=== PATIENT | male | born 1935 | race Caucasian/White ===

== ENCOUNTER 2017-07-09 19:18 | Inpatient (IN) ==
[2017-07-09] MEDS ORDERED: ASPIRIN 325 MG TABLET PO STA (19:42)
[2017-07-09] MEDS ORDERED: FUROSEMIDE 40 MG/4 ML VIAL IV STA (19:42)
[2017-07-09 20:40] LABS: Basophils # 0.1 10*3/uL (0.0-0.2); Basophils % 1.2 % (0.0-0.8); Eosinophils # 0.6 10*3/uL (0.0-0.87); Eosinophils % 8.7 % (0.00-10.9); Hematocrit 30.1 VOL% (42.0-52.0); Hemoglobin 9.5 GM/DL (14.0-18.0); Immature Granulocytes % 0.7 %; Immature Granulocytes Absolute 0.05 #; Lymphocytes # 0.7 10*3/uL (1.4-4.0); Lymphocytes % 10.2 % (21.2-54.2); Mean Corpuscular HGB Conc 31.6 GM/DL (32-36); Mean Corpuscular Hemoglobin 24 PG (27-34); Mean Corpuscular Volume 74.7 FL (87-102); Monocytes # 0.8 10*3/uL (0.11-0.8); Monocytes % 10.6 % (1.7-12.7); NRBC # 0.03 10*3/uL; Neutrophils % 68.6 % (38.7-73.9); Platelet Count 155 T/CUMM (130-400); Red Blood Count 4.03 MC/CUMM (3.8-5.5); Red Cell Distribution Width 19.3 % (9.3-17.3); White Blood Count 7.3 T/CUMM (4-12)
[2017-07-09 20:48] LABS: INR 1.9; PT Patient Result 19.8 SECS
[2017-07-09 21:07] LABS: Albumin 2.8 G/DL (3.4-5.0); Bilirubin,Total 2.1 MG/DL (0.2-1.0); Calcium 8.3 MG/DL (8.5-10.1); Osmolality,Calculated 287.8 MOS/KG (273-304); Potassium 3.6 MMOL/L (3.5-5.1); Total Protein 5.3 G/DL (6.4-8.3)
[2017-07-09] MEDS ORDERED: MAGNESIUM SULF RIDER 4 GM in PREMIX 1 EACH IV PRN (21:43)
[2017-07-09] MEDS ORDERED: ONDANSETRON 4 MG/2 ML VIAL IV PRN (21:43)
[2017-07-09] MEDS ORDERED: MAGNESIUM SULF RIDER 2 GM in PREMIX 1 EACH IV PRN (21:43)
[2017-07-09] MEDS ORDERED: PSYLLIUM POWDER 3.7 GM/PACK PO PRN (23:16)
[2017-07-09] MEDS ORDERED: BENZONATATE 100 MG CAPSULE PO PRN (23:16)
[2017-07-09] MEDS: ATORVASTATIN 10 MG TABLET PO SCH (23:41)
[2017-07-09] MEDS: TAMSULOSIN 0.4 MG CAPSULE PO SCH (23:41)
[2017-07-09] MEDS: APIXABAN 2.5 MG TABLET PO SCH (23:54)
[2017-07-09] MEDS: CARVEDILOL 12.5 MG TABLET PO SCH (23:54)
[2017-07-10 04:40] LABS: Basophils # 0.1 10*3/uL (0.0-0.2); Basophils % 1.1 % (0.0-0.8); Eosinophils # 0.7 10*3/uL (0.0-0.87); Hematocrit 28.3 VOL% (42.0-52.0); Hemoglobin 9.2 GM/DL (14.0-18.0); Immature Granulocytes % 0.9 %; Immature Granulocytes Absolute 0.06 #; Lymphocytes # 0.8 10*3/uL (1.4-4.0); Lymphocytes % 11.6 % (21.2-54.2); Mean Corpuscular HGB Conc 32.5 GM/DL (32-36); Mean Corpuscular Hemoglobin 24 PG (27-34); Mean Corpuscular Volume 72.6 FL (87-102); Monocytes # 0.8 10*3/uL (0.11-0.8); Monocytes % 12.5 % (1.7-12.7); NRBC # 0.03 10*3/uL; Neutrophils # 4.2 10*3/uL (1.4-7.4); Neutrophils % 62.9 % (38.7-73.9); Platelet Count 141 T/CUMM (130-400); Red Cell Distribution Width 19.4 % (9.3-17.3); White Blood Count 6.6 T/CUMM (4-12)
[2017-07-10 05:18] LABS: Albumin 2.4 G/DL (3.4-5.0); Bilirubin,Total 2.4 MG/DL (0.2-1.0); Calcium 8.3 MG/DL (8.5-10.1); Osmolality,Calculated 286.7 MOS/KG (273-304); Potassium 3.1 MMOL/L (3.5-5.1)
[2017-07-10 05:24] LABS: Eosinophils 15 % (0-10); Lymphocytes 7 % (20-55); Segmented Neutrophils 72 % (50-85); Total Cells Counted 100
[2017-07-10 05:25] LABS: Acanthocytes Few; Hypochromasia 1+
[2017-07-10 05:26] LABS: Microcytosis 1+; Poikilocytosis 1+
[2017-07-10 05:27] LABS: Platelet Estimate Adequate
[2017-07-10] MEDS ORDERED: FUROSEMIDE 20 MG/2 ML VIAL IV SCH (08:00)
[2017-07-10] MEDS ORDERED: ENOXAPARIN 40 MG/0.4 ML SYRINGE SUBCUT SCH (09:00)
[2017-07-10] MEDS ORDERED: PANTOPRAZOLE 40 MG TABLET PO SCH (09:00)
[2017-07-10] MEDS ORDERED: POTASSIUM CHLORIDE 20 MEQ TABLET PO PRN (09:12)
[2017-07-10] MEDS: ALLOPURINOL 300 MG TABLET PO SCH (09:49)
[2017-07-10] MEDS: ISOSORBIDE MONONITRATE 60 MG TABLET PO SCH (09:49)
[2017-07-10] MEDS: ASPIRIN CHEW 81 MG TABLET PO SCH (09:50)
[2017-07-10] MEDS: PANTOPRAZOLE 40 MG TABLET PO SCH ×2 (09:50→20:35)
[2017-07-10] MEDS: APIXABAN 2.5 MG TABLET PO SCH ×2 (09:50→20:35)
[2017-07-10] MEDS: CARVEDILOL 12.5 MG TABLET PO SCH ×2 (09:50→20:36)
[2017-07-10] MEDS: TAMSULOSIN 0.4 MG CAPSULE PO SCH (17:18)
[2017-07-10] MEDS: FUROSEMIDE 40 MG/4 ML VIAL IV SCH (17:21)
[2017-07-10] MEDS: FENOFIBRATE 145 MG TABLET PO SCH (20:35)
[2017-07-10] MEDS: ATORVASTATIN 10 MG TABLET PO SCH (20:37)
[2017-07-10] MEDS: TEMAZEPAM 15 MG CAPSULE PO PRN (22:05)
[2017-07-11 05:16] LABS: Basophils # 0.1 10*3/uL (0.0-0.2); Basophils % 0.7 % (0.0-0.8); Eosinophils % 14.2 % (0.00-10.9); Immature Granulocytes % 0.7 %; Immature Granulocytes Absolute 0.05 #; Lymphocytes # 0.8 10*3/uL (1.4-4.0); Lymphocytes % 10.4 % (21.2-54.2); Mean Corpuscular HGB Conc 32.1 GM/DL (32-36); Mean Corpuscular Hemoglobin 23 PG (27-34); Mean Corpuscular Volume 72.5 FL (87-102); Monocytes # 0.7 10*3/uL (0.11-0.8); Monocytes % 10.1 % (1.7-12.7); NRBC # 0.02 10*3/uL; Neutrophils # 4.7 10*3/uL (1.4-7.4); Neutrophils % 63.9 % (38.7-73.9); Platelet Count 141 T/CUMM (130-400); Red Blood Count 3.86 MC/CUMM (3.8-5.5); Red Cell Distribution Width 19.5 % (9.3-17.3); White Blood Count 7.3 T/CUMM (4-12)
[2017-07-11 05:41] LABS: Calcium 8.2 MG/DL (8.5-10.1); Osmolality,Calculated 291.4 MOS/KG (273-304)
[2017-07-11 06:26] LABS: Eosinophils 15 % (0-10); Hypochromasia 1+; Lymphocytes 11 % (20-55); Segmented Neutrophils 69 % (50-85); Total Cells Counted 100
[2017-07-11 06:27] LABS: Acanthocytes Few; Burr Cells Slight; Microcytosis 1+; Ovalocytes Slight
[2017-07-11 06:28] LABS: Platelet Estimate Adequate
[2017-07-11] MEDS: ISOSORBIDE MONONITRATE 60 MG TABLET PO SCH (08:15)
[2017-07-11] MEDS: CARVEDILOL 12.5 MG TABLET PO SCH ×2 (08:15→21:39)
[2017-07-11] MEDS: ALLOPURINOL 300 MG TABLET PO SCH (08:16)
[2017-07-11] MEDS: APIXABAN 2.5 MG TABLET PO SCH ×2 (08:16→21:39)
[2017-07-11] MEDS: PANTOPRAZOLE 40 MG TABLET PO SCH ×2 (08:16→16:08)
[2017-07-11] MEDS: ASPIRIN CHEW 81 MG TABLET PO SCH (08:16)
[2017-07-11] MEDS: FUROSEMIDE 40 MG/4 ML VIAL IV SCH ×2 (08:17→16:07)
[2017-07-11] MEDS: POTASSIUM CHLORIDE 20 MEQ TABLET PO SCH ×2 (10:21→21:39)
[2017-07-11] MEDS: LISINOPRIL 5 MG TABLET PO SCH (10:23)
[2017-07-11] MEDS: TAMSULOSIN 0.4 MG CAPSULE PO SCH (17:13)
[2017-07-11] MEDS: TEMAZEPAM 15 MG CAPSULE PO PRN (21:38)
[2017-07-11] MEDS: ATORVASTATIN 10 MG TABLET PO SCH (21:39)
[2017-07-11] MEDS: FENOFIBRATE 145 MG TABLET PO SCH (21:39)
[2017-07-12 04:54] LABS: Basophils # 0.1 10*3/uL (0.0-0.2); Eosinophils # 0.8 10*3/uL (0.0-0.87); Eosinophils % 9.6 % (0.00-10.9); Hematocrit 27.7 VOL% (42.0-52.0); Hemoglobin 8.9 GM/DL (14.0-18.0); Immature Granulocytes Absolute 0.08 #; Lymphocytes # 0.8 10*3/uL (1.4-4.0); Lymphocytes % 10.2 % (21.2-54.2); Mean Corpuscular HGB Conc 32.1 GM/DL (32-36); Mean Corpuscular Hemoglobin 23 PG (27-34); Mean Corpuscular Volume 72.9 FL (87-102); Monocytes # 0.8 10*3/uL (0.11-0.8); Monocytes % 9.6 % (1.7-12.7); NRBC # 0.02 10*3/uL; Neutrophils # 5.4 10*3/uL (1.4-7.4); Neutrophils % 68.6 % (38.7-73.9); Platelet Count 157 T/CUMM (130-400); Red Cell Distribution Width 19.6 % (9.3-17.3); White Blood Count 7.9 T/CUMM (4-12)
[2017-07-12 05:28] LABS: Acanthocytes Few; Hypochromasia 2+; Microcytosis 1+; Polychromasia Slight; Target Cells Slight
[2017-07-12 05:29] LABS: Anisocytosis 1+; Ovalocytes Slight; Platelet Estimate Adequate; Poikilocytosis 1+
[2017-07-12 05:37] LABS: Calcium 8.6 MG/DL (8.5-10.1); Potassium 3.7 MMOL/L (3.5-5.1)
[2017-07-12] MEDS: POTASSIUM CHLORIDE 20 MEQ TABLET PO SCH ×2 (09:04→21:36)
[2017-07-12] MEDS: FUROSEMIDE 40 MG/4 ML VIAL IV SCH ×2 (09:04→16:25)
[2017-07-12] MEDS: ISOSORBIDE MONONITRATE 60 MG TABLET PO SCH (09:04)
[2017-07-12] MEDS: PANTOPRAZOLE 40 MG TABLET PO SCH ×2 (09:04→16:25)
[2017-07-12] MEDS: ALLOPURINOL 300 MG TABLET PO SCH (09:05)
[2017-07-12] MEDS: APIXABAN 2.5 MG TABLET PO SCH ×2 (09:05→21:37)
[2017-07-12] MEDS: LISINOPRIL 5 MG TABLET PO SCH (09:05)
[2017-07-12] MEDS: CARVEDILOL 12.5 MG TABLET PO SCH ×2 (09:05→21:37)
[2017-07-12] MEDS: ASPIRIN CHEW 81 MG TABLET PO SCH (09:05)
[2017-07-12] MEDS ORDERED: IRON SUCROSE 200 MG in SODIUM CHLORIDE 0.9% 100 ML IV ONE (16:00)
[2017-07-12] MEDS: TAMSULOSIN 0.4 MG CAPSULE PO SCH ×2 (16:25→17:03)
[2017-07-12] MEDS: FENOFIBRATE 145 MG TABLET PO SCH (21:36)
[2017-07-12] MEDS: ATORVASTATIN 10 MG TABLET PO SCH ×2 (21:37→21:38)
[2017-07-12] MEDS: TEMAZEPAM 15 MG CAPSULE PO PRN (21:41)
[2017-07-13 05:46] LABS: Basophils # 0.1 10*3/uL (0.0-0.2); Eosinophils # 0.8 10*3/uL (0.0-0.87); Eosinophils % 8.4 % (0.00-10.9); Hematocrit 28.8 VOL% (42.0-52.0); Hemoglobin 8.8 GM/DL (14.0-18.0); Immature Granulocytes Absolute 0.09 #; Lymphocytes # 0.8 10*3/uL (1.4-4.0); Lymphocytes % 8.9 % (21.2-54.2); Mean Corpuscular HGB Conc 30.6 GM/DL (32-36); Mean Corpuscular Hemoglobin 23 PG (27-34); Monocytes # 0.8 10*3/uL (0.11-0.8); Monocytes % 8.9 % (1.7-12.7); NRBC # 0.02 10*3/uL; Neutrophils # 6.5 10*3/uL (1.4-7.4); Neutrophils % 71.8 % (38.7-73.9); Platelet Count 142 T/CUMM (130-400); Red Blood Count 3.84 MC/CUMM (3.8-5.5); Red Cell Distribution Width 19.6 % (9.3-17.3)
[2017-07-13 06:15] LABS: Calcium 8.6 MG/DL (8.5-10.1); Osmolality,Calculated 295.1 MOS/KG (273-304); Potassium 3.8 MMOL/L (3.5-5.1)
[2017-07-13 06:35] LABS: Hypochromasia 2+
[2017-07-13 06:36] LABS: Acanthocytes Few; Microcytosis 1+; Ovalocytes Slight; Platelet Estimate Adequate; Poikilocytosis 1+; Target Cells Slight
[2017-07-13] MEDS: FUROSEMIDE 40 MG/4 ML VIAL IV SCH ×2 (09:45→16:08)
[2017-07-13] MEDS: CARVEDILOL 12.5 MG TABLET PO SCH ×2 (09:46→21:51)
[2017-07-13] MEDS: APIXABAN 2.5 MG TABLET PO SCH ×2 (09:46→21:51)
[2017-07-13] MEDS: PANTOPRAZOLE 40 MG TABLET PO SCH ×2 (09:46→16:07)
[2017-07-13] MEDS: ISOSORBIDE MONONITRATE 60 MG TABLET PO SCH (09:46)
[2017-07-13] MEDS: POTASSIUM CHLORIDE 20 MEQ TABLET PO SCH ×2 (09:46→21:51)
[2017-07-13] MEDS: ASPIRIN CHEW 81 MG TABLET PO SCH (09:46)
[2017-07-13] MEDS: ALLOPURINOL 300 MG TABLET PO SCH (09:47)
[2017-07-13] MEDS: LISINOPRIL 5 MG TABLET PO SCH (09:47)
[2017-07-13] MEDS: TAMSULOSIN 0.4 MG CAPSULE PO SCH ×2 (16:09→17:12)
[2017-07-13] MEDS: FENOFIBRATE 145 MG TABLET PO SCH (21:51)
[2017-07-13] MEDS: TEMAZEPAM 15 MG CAPSULE PO PRN (21:51)
[2017-07-13] MEDS: ATORVASTATIN 10 MG TABLET PO SCH (21:52)
[2017-07-14 05:45] LABS: Basophils # 0.1 10*3/uL (0.0-0.2); Basophils % 0.9 % (0.0-0.8); Eosinophils # 0.7 10*3/uL (0.0-0.87); Eosinophils % 9.6 % (0.00-10.9); Hematocrit 27.4 VOL% (42.0-52.0); Hemoglobin 8.8 GM/DL (14.0-18.0); Immature Granulocytes % 1.6 %; Immature Granulocytes Absolute 0.12 #; Lymphocytes # 0.8 10*3/uL (1.4-4.0); Lymphocytes % 11.3 % (21.2-54.2); Mean Corpuscular HGB Conc 32.1 GM/DL (32-36); Mean Corpuscular Hemoglobin 24 PG (27-34); Mean Corpuscular Volume 73.3 FL (87-102); Monocytes # 0.7 10*3/uL (0.11-0.8); NRBC # 0.02 10*3/uL; Neutrophils % 67.6 % (38.7-73.9); Platelet Count 141 T/CUMM (130-400); Red Blood Count 3.74 MC/CUMM (3.8-5.5); White Blood Count 7.4 T/CUMM (4-12)
[2017-07-14 06:19] LABS: Osmolality,Calculated 294.1 MOS/KG (273-304)
[2017-07-14 06:20] LABS: Calcium 9.1 MG/DL (8.5-10.1); Potassium 3.9 MMOL/L (3.5-5.1)
[2017-07-14 07:32] LABS: Burr Cells 1+; Elliptocytes 1+; Macrocytosis 1+; Target Cells Slight
[2017-07-14 07:33] LABS: Acanthocytes 1+
[2017-07-14] MEDS: ISOSORBIDE MONONITRATE 60 MG TABLET PO SCH (08:19)
[2017-07-14] MEDS: ASPIRIN CHEW 81 MG TABLET PO SCH (08:19)
[2017-07-14] MEDS: ALLOPURINOL 300 MG TABLET PO SCH (08:19)
[2017-07-14] MEDS: APIXABAN 2.5 MG TABLET PO SCH ×2 (08:19→20:52)
[2017-07-14] MEDS: POTASSIUM CHLORIDE 20 MEQ TABLET PO SCH ×2 (08:19→20:51)
[2017-07-14] MEDS: PANTOPRAZOLE 40 MG TABLET PO SCH ×2 (08:19→17:10)
[2017-07-14] MEDS: FUROSEMIDE 40 MG/4 ML VIAL IV SCH ×2 (08:19→15:13)
[2017-07-14] MEDS: CARVEDILOL 12.5 MG TABLET PO SCH ×2 (08:19→20:51)
[2017-07-14] MEDS: LISINOPRIL 5 MG TABLET PO SCH (08:19)
[2017-07-14] MEDS: TAMSULOSIN 0.4 MG CAPSULE PO SCH (17:10)
[2017-07-14] MEDS ORDERED: DIGOXIN 0.25 MG TABLET PO ONE (18:58)
[2017-07-14] MEDS: FENOFIBRATE 145 MG TABLET PO SCH (20:52)
[2017-07-14] MEDS: TEMAZEPAM 15 MG CAPSULE PO PRN (22:01)
[2017-07-15 03:59] LABS: Calcium 9.3 MG/DL (8.5-10.1); Osmolality,Calculated 296.1 MOS/KG (273-304); Potassium 4.4 MMOL/L (3.5-5.1)
[2017-07-15] MEDS ORDERED: DIGOXIN 0.25 MG TABLET PO ONE (09:00)
[2017-07-15] MEDS: CARVEDILOL 12.5 MG TABLET PO SCH ×2 (09:17→20:41)
[2017-07-15] MEDS: POTASSIUM CHLORIDE 20 MEQ TABLET PO SCH ×2 (09:17→20:41)
[2017-07-15] MEDS: FUROSEMIDE 40 MG/4 ML VIAL IV SCH ×2 (09:17→16:58)
[2017-07-15] MEDS: ALLOPURINOL 300 MG TABLET PO SCH (09:17)
[2017-07-15] MEDS: APIXABAN 2.5 MG TABLET PO SCH ×2 (09:18→20:41)
[2017-07-15] MEDS: ISOSORBIDE MONONITRATE 60 MG TABLET PO SCH (09:18)
[2017-07-15] MEDS: LISINOPRIL 5 MG TABLET PO SCH (09:18)
[2017-07-15] MEDS: ASPIRIN CHEW 81 MG TABLET PO SCH (09:18)
[2017-07-15] MEDS: PANTOPRAZOLE 40 MG TABLET PO SCH ×2 (09:18→16:58)
[2017-07-15] MEDS: DIGOXIN 0.125 MG TABLET PO SCH (13:14)
[2017-07-15] MEDS: TAMSULOSIN 0.4 MG CAPSULE PO SCH (17:02)
[2017-07-15] MEDS: FENOFIBRATE 145 MG TABLET PO SCH (20:41)
[2017-07-15] MEDS: TEMAZEPAM 15 MG CAPSULE PO PRN (20:41)
[2017-07-16 05:46] LABS: Calcium 9.8 MG/DL (8.5-10.1); Osmolality,Calculated 294.1 MOS/KG (273-304); Potassium 4.3 MMOL/L (3.5-5.1)
[2017-07-16] MEDS: ISOSORBIDE MONONITRATE 60 MG TABLET PO SCH (08:34)
[2017-07-16] MEDS: APIXABAN 2.5 MG TABLET PO SCH ×2 (08:34→21:17)
[2017-07-16] MEDS: PANTOPRAZOLE 40 MG TABLET PO SCH ×2 (08:34→16:38)
[2017-07-16] MEDS: FUROSEMIDE 40 MG/4 ML VIAL IV SCH (08:34)
[2017-07-16] MEDS: LISINOPRIL 5 MG TABLET PO SCH (08:34)
[2017-07-16] MEDS: ASPIRIN CHEW 81 MG TABLET PO SCH (08:34)
[2017-07-16] MEDS: ALLOPURINOL 300 MG TABLET PO SCH (08:34)
[2017-07-16] MEDS: POTASSIUM CHLORIDE 20 MEQ TABLET PO SCH ×2 (08:34→21:17)
[2017-07-16] MEDS: CARVEDILOL 12.5 MG TABLET PO SCH ×2 (08:35→21:17)
[2017-07-16] MEDS ORDERED: SODIUM CHLORIDE 0.65% NASAL SPRAY 45 ML BOTTLE BOTH NARES PRN (09:48)
[2017-07-16] MEDS: DIGOXIN 0.125 MG TABLET PO SCH (12:56)
[2017-07-16] MEDS: FUROSEMIDE 80 MG TABLET PO SCH (16:38)
[2017-07-16] MEDS: TAMSULOSIN 0.4 MG CAPSULE PO SCH (17:08)
[2017-07-16] MEDS: FENOFIBRATE 145 MG TABLET PO SCH (21:17)
[2017-07-16] MEDS: TEMAZEPAM 15 MG CAPSULE PO PRN (21:17)
[2017-07-17 04:21] LABS: Calcium 9.5 MG/DL (8.5-10.1); Osmolality,Calculated 297.3 MOS/KG (273-304); Potassium 4.3 MMOL/L (3.5-5.1)
[2017-07-17] MEDS: POTASSIUM CHLORIDE 20 MEQ TABLET PO SCH ×2 (08:44→20:27)
[2017-07-17] MEDS: ISOSORBIDE MONONITRATE 60 MG TABLET PO SCH (08:44)
[2017-07-17] MEDS: ALLOPURINOL 300 MG TABLET PO SCH (08:44)
[2017-07-17] MEDS: PANTOPRAZOLE 40 MG TABLET PO SCH ×2 (08:45→17:16)
[2017-07-17] MEDS: CARVEDILOL 12.5 MG TABLET PO SCH ×2 (08:45→20:27)
[2017-07-17] MEDS: LISINOPRIL 5 MG TABLET PO SCH (08:45)
[2017-07-17] MEDS: APIXABAN 2.5 MG TABLET PO SCH ×2 (08:45→20:27)
[2017-07-17] MEDS: ASPIRIN CHEW 81 MG TABLET PO SCH (08:46)
[2017-07-17] MEDS: FUROSEMIDE 80 MG TABLET PO SCH (08:46)
[2017-07-17] MEDS: DIGOXIN 0.125 MG TABLET PO SCH (12:19)
[2017-07-17] MEDS ORDERED: VANCOMYCIN INJ 1,000 MG in SODIUM CHLORIDE 0.9% 250 ML IV SCH (15:00)
[2017-07-17] MEDS: metOLazone 2.5 MG TABLET PO SCH (17:16)
[2017-07-17] MEDS: TAMSULOSIN 0.4 MG CAPSULE PO SCH (17:16)
[2017-07-17] MEDS: FENOFIBRATE 145 MG TABLET PO SCH (20:27)
[2017-07-17] MEDS ORDERED: TEMAZEPAM 15 MG CAPSULE PO PRN (20:33)
[2017-07-18 06:07] LABS: Basophils # 0.1 10*3/uL (0.0-0.2); Basophils % 0.6 % (0.0-0.8); Eosinophils # 0.4 10*3/uL (0.0-0.87); Eosinophils % 3.2 % (0.00-10.9); Hematocrit 29.6 VOL% (42.0-52.0); Hemoglobin 9.6 GM/DL (14.0-18.0); Immature Granulocytes Absolute 0.25 #; Lymphocytes # 0.8 10*3/uL (1.4-4.0); Lymphocytes % 6.2 % (21.2-54.2); Mean Corpuscular HGB Conc 32.4 GM/DL (32-36); Mean Corpuscular Hemoglobin 24 PG (27-34); Mean Corpuscular Volume 74.6 FL (87-102); Monocytes # 0.9 10*3/uL (0.11-0.8); Monocytes % 7.2 % (1.7-12.7); NRBC # 0.02 10*3/uL; Neutrophils # 10.2 10*3/uL (1.4-7.4); Neutrophils % 80.8 % (38.7-73.9); Red Blood Count 3.97 MC/CUMM (3.8-5.5); White Blood Count 12.6 T/CUMM (4-12)
[2017-07-18 06:09] LABS: Platelet Count 150 T/CUMM (130-400)
[2017-07-18 06:27] LABS: Acanthocytes Few; Hypochromasia 2+; Microcytosis 1+
[2017-07-18 06:28] LABS: Elliptocytes Few; Platelet Estimate Adequate; Poikilocytosis 1+; Target Cells Slight
[2017-07-18 06:32] LABS: Calcium 8.5 MG/DL (8.5-10.1); Osmolality,Calculated 296.3 MOS/KG (273-304); Potassium 3.9 MMOL/L (3.5-5.1)
[2017-07-18 06:33] LABS: Calcium 9.6 MG/DL (8.5-10.1); Osmolality,Calculated 294.4 MOS/KG (273-304); Potassium 3.9 MMOL/L (3.5-5.1)
[2017-07-18] MEDS: APIXABAN 2.5 MG TABLET PO SCH (08:25)
[2017-07-18] MEDS: CARVEDILOL 12.5 MG TABLET PO SCH (08:25)
[2017-07-18] MEDS: ISOSORBIDE MONONITRATE 60 MG TABLET PO SCH (08:25)
[2017-07-18] MEDS: PANTOPRAZOLE 40 MG TABLET PO SCH (08:25)
[2017-07-18] MEDS: LISINOPRIL 5 MG TABLET PO SCH (08:25)
[2017-07-18] MEDS: ASPIRIN CHEW 81 MG TABLET PO SCH (08:25)
[2017-07-18] MEDS: POTASSIUM CHLORIDE 20 MEQ TABLET PO SCH (08:25)
[2017-07-18] MEDS: metOLazone 2.5 MG TABLET PO SCH (08:26)
[2017-07-18] MEDS: ALLOPURINOL 300 MG TABLET PO SCH (08:26)
[2017-07-18] MEDS ORDERED: BUMETANIDE 1 MG TABLET PO SCH (09:00)
[2017-07-18 12:19] VITALS: BP 124/53
[2017-07-18] MEDS: DIGOXIN 0.125 MG TABLET PO SCH (12:25)
== END 2017-07-18 13:50 | disposition home or self-care (01) | DRG 291 ==
LOC: N.ED 19:18 → SUATTDRO 21:43 → N.EDINP 21:43 → N.TELEN 23:06
PROVIDERS: ADMIT Internal Medicine Infectious Disease; ATTEND Family Medicine

== ENCOUNTER 2017-08-03 11:47 | Inpatient (IN) ==
[2017-08-03] MEDS ORDERED: SODIUM CHLORIDE 0.9% 1,000 ML IV STA ×2 (12:14→14:14)
[2017-08-03 13:02] LABS: Hematocrit 22.8 VOL% (42.0-52.0); Hemoglobin 6.9 GM/DL (14.0-18.0); Lymphocytes % 4.8 % (21.2-54.2); Mean Corpuscular HGB Conc 30.3 GM/DL (32-36); Mean Corpuscular Hemoglobin 24 PG (27-34); Mean Corpuscular Volume 78.4 FL (87-102); Monocytes % 5.4 % (1.7-12.7); Neutrophils % 87.4 % (38.7-73.9); Platelet Count 145 T/CUMM (130-400); Red Blood Count 2.91 MC/CUMM (3.8-5.5); White Blood Count 10.9 T/CUMM (4-12)
[2017-08-03 13:03] LABS: Basophils # 0.1 10*3/uL (0.0-0.2); Basophils % 0.6 % (0.0-0.8); Eosinophils # 0.1 10*3/uL (0.0-0.87); Eosinophils % 0.7 % (0.00-10.9); Immature Granulocytes % 1.1 %; Immature Granulocytes Absolute 0.12 #; Lymphocytes # 0.5 10*3/uL (1.4-4.0); Monocytes # 0.6 10*3/uL (0.11-0.8); NRBC # 0.06 10*3/uL; Neutrophils # 9.5 10*3/uL (1.4-7.4)
[2017-08-03 13:13] LABS: Apearance,Urine Slightly Hazy (Clear); Bacteria,Urine Occasional /HPF (Few); Bilirubin,Urine Negative (Negative); Blood, Urine Negative (Negative); Glucose,Urine (UA) Negative (Negative); Hyaline Casts,Urine 4 /LPF (0-3); Ketones,Urine Negative (Negative); Nitrite,Urine Negative (Negative); Protein,Urine Negative; RBC,Urine 1 /HPF (0-4); Urine Color Amber (Yellow); Urine Specific Gravity 1.014 (1.001-1.035); WBC,Urine 3 /HPF (0-6)
[2017-08-03] MEDS ORDERED: LEVOFLOXACIN INJ 750 MG in PREMIX 1 EACH IV STA (13:27)
[2017-08-03] MEDS ORDERED: methylPREDNISolone SOD SUC 125 MG/2 ML VIAL IV STA (13:29)
[2017-08-03 13:33] LABS: Albumin 1.6 G/DL (3.4-5.0); Bilirubin,Total 1.6 MG/DL (0.2-1.0); CKMB % 27.6 %; Calcium 7.9 MG/DL (8.5-10.1); Osmolality,Calculated 354.1 MOS/KG (273-304); Potassium 4.4 MMOL/L (3.5-5.1); Total Protein 4.5 G/DL (6.4-8.3); Troponin I Only 0.673 NG/ML (0.00-0.045)
[2017-08-03 13:37] LABS: Band Neutrophils 3 % (0-10); Elliptocytes Few; Eosinophils 1 % (0-10); Lymphocytes 5 % (20-55); Nucleated Red Blood Cells 2 (0-5); Segmented Neutrophils 88 % (50-85); Total Cells Counted 100
[2017-08-03 13:38] LABS: Anisocytosis 2+; Ovalocytes Few
[2017-08-03 13:39] LABS: Burr Cells Few; Hypochromasia 1+; Poikilocytosis Slight
[2017-08-03] MEDS: ALBUTEROL NEB SOLN 5 MG/ML 20 ML/BOTTLE CONT NEB STA ×2 (13:40→16:29)
[2017-08-03 13:41] LABS: INR 1.3; PT Patient Result 13.5 SECS; Partial Thromboplastin Time 37.9 SECS (0-40)
[2017-08-03 14:31] LABS: Barbiturates Screen,Urine Negative (Negative); Benzodiazepines Screen,Urine Positive (Negative); Cannabinoid Screen,Urine Negative (Negative); Opiate Screen,Urine Positive (Negative); Phencyclidine Screen,Urine Negative (Negative)
[2017-08-03] MEDS ORDERED: ACETAMINOPHEN 325 MG TABLET PO PRN (15:37)
[2017-08-03] MEDS ORDERED: ONDANSETRON 4 MG/2 ML VIAL IV PRN (15:37)
[2017-08-03] MEDS ORDERED: guaiFENesin/DM ER 600-30 MG TABLET PO PRN (15:37)
[2017-08-03] MEDS ORDERED: ALBUTEROL 2.5 MG/3 ML NEB RESP TX PRN (15:41)
[2017-08-03] MEDS ORDERED: SODIUM CHLORIDE 0.9% 1,000 ML IV PRN (15:43)
[2017-08-03] MEDS ORDERED: PANTOPRAZOLE 40 MG TABLET PO SCH (16:00)
[2017-08-03] MEDS ORDERED: cefTRIAXone 1,000 MG in SYRINGE 1 EACH IV SCH (16:00)
[2017-08-03] MEDS: DOPamine 800 MG/250 ML PREMIX IV PRN (16:05)
[2017-08-04] MEDS: DOPamine 800 MG/250 ML PREMIX IV PRN (02:33)
[2017-08-04 03:54] VITALS: BP 127/61
== END 2017-08-04 03:31 | disposition expired | DRG 64 ==
LOC: EDBD → EDUNIT# → N.ED 11:47 → N.EDINP 15:53 → N.CC 16:20
PROVIDERS: ADMIT Internal Medicine; ATTEND Internal Medicine